=== PATIENT | female | born 2000 | race Caucasian/White ===

== ENCOUNTER 2024-05-01 18:58 | Emergency (ER) | payer BC, SELFPAY ==
[2024-05-01 19:02] VITALS: BP 140/90
[2024-05-01 21:58] VITALS: BP 116/79
--- NOTE | 2024-05-01 23:47 | ED.SKININJ ---
HPI-Injury
General
Chief Complaint: Skin Problem
Source: patient
Exam Limitations: none
Time Seen by Provider: 05/01/24 21:28
Nursing documentation reviewed up to this point in time: agreed with
History of Present Illness-Injury
Is this injury a work related problem?: No
Is pt an associate of [facility]/[place]?: No
Initial Injury comments:
Patient to ED with paranychia to right thumb. Symptoms started a few days ago. She was placed on Bactrim DS by PCP but states there has been no improvement. Denies fever/chills. No prior history of same.
Past History
Past History
ED Past Medical History: None
ED Past Surgical History: None
Review of Systems
Review of Systems
Allergies reviewed?: Yes
All Other Systems: ROS reviewed and negative except as documented in HPI and ROS
Constitutional: Reports no symptoms
Musculoskeletal: Reports no symptoms
Skin: Reports other (paranychia right thumb)
Neurological: Reports no symptoms
Psychiatric: Reports no symptoms
Skin Exam
Abscess
Right Distal Thumb:
Description of abscess: fluctuant
Surrounding skin:: inflammed at abscess site
Phy Exam
General Physical Exam
General Presentation: well appearing and no apparent distress
General age: appears stated age
General Skin: warm and dry
General Habitus: normal
General Mental: alert
Musculoskeletal Exam
Musculoskeletal Exam: full ROM and neuro vasc intact
Skin Exam
Skin Exam: warm/dry and other (Paranychia right thumb)
Psychiatric Exam
Psychiatric Exam: normal mood/affect
Course
Orders/Labs/Results
Orders:
Orders
05/01/24 21:52
Wound Culture [Wound/Abscess/Other Culture] Urgent
ALICIA Source: Thumb
Specimen Description: Right
Date Specimen was Collected: 05/01/24
Time Specimen was Collected: 21:50
Vital Signs
Initial and Last Documented VS:
Initial Vital Signs
Temp Pulse Resp BP Pulse Ox
98.3 F 96 20 140/90 99
05/01/24 19:02 05/01/24 19:02 05/01/24 19:02 05/01/24 19:02 05/01/24 19:02
Last Documented Vital Signs
Temp Pulse Resp BP Pulse Ox
98.3 F 77 18 116/79 100
05/01/24 19:02 05/01/24 21:58 05/01/24 21:58 05/01/24 21:58 05/01/24 21:58
Procedures
Incision/Drainage/Joint Aspiration
Right Distal Dorsal Thumb:
Anethesia: 1% Lidocaine
Preparation: cleaned with Betadine
Type of procedure: incise and drain
Nature of site: abscess
Description of abscess: less than 3cm
How much fluid was obtained?: large amount
Fluid description: purulent
Treatment: left open for drainage and antibiotics started
Right Distal Thumb:
Anethesia: 1% Lidocaine (Digital block)
Preparation: cleaned with Betadine
Type of procedure: incise
Nature of site: abscess
Description of abscess: less than 3cm
How much fluid was obtained?: large amount
Fluid description: purulent
Treatment: left open for drainage
*Critical Care Note
Total Time (30-74mins, 75-104mins- exclusive of procedures): Not Applicable
ED Attending Note
-
Portions of this chart may have been created with voice recognition software.� Occasional wrong word or��sound alike� substitutions may have occurred due to the inherent limitations of voice recognition software.
Discharge Plan
Departure
Patient Disposition: Home (Routine Discharge)
Date of Disposition: 05/01/24
Time of Disposition: 21:45
Patient with high blood pressure during this ER visit?: No
Condition: Good
Covid-19: Not Applicable
Discharge Problem:
Acute paronychia of thumb
Instructions: Paronychia ED
Activity Restrictions/Additional Instructions:
Continue your current antibiotic. Warm soaks to your finger 15-20 minutes at a time 4-5 times daily. Return to the emergency department immediately for fever/chills, increasing pain/redness/swelling to your finger, or for any further concerns.
Interventions
Interventions:
*Risk Screen - Suicide Last Done: 05/01/24 19:00
*General Assessment Last Done: 05/01/24 19:02
*Neglect/Abuse Screening Last Done: 05/01/24 21:58
*Nursing Disposition Last Done: 05/01/24 21:58
ED-Skin Assessment Last Done: 05/01/24 21:56
Discharge Date and Time
Discharge Date/Time: 05/01/24 22:05
Print Language: SLOVAK
== END 2024-05-01 22:05 | disposition home or self-care (01) ==
LOC: EMR 18:58
PROVIDERS: EMERGENCY PHYSICIAN Student in an Organized Health Care Education/Training Program; FAMILY PHYSICIAN Internal Medicine
DX: L03.011 Cellulitis of right finger (principal)
CPT/HCPCS: 64450; 99283; 26010; 87070; 87077; 87147; 87186; 87205